=== PATIENT | male | born 1990 | race Caucasian/White ===

== ENCOUNTER 2024-07-16 11:18 | Inpatient (IN) ==
--- NOTE | 2024-07-16 11:40 | Emergency Department Note ---
HPI - Dizziness General Chief Complaint: Dizziness Stated Complaint: DIZZINESS,CHEST PAIN Time Seen by Provider: 07/16/24 11:37 Source: patient Mode of arrival: walk-in Limitations: no limitations History of Present Illness HPI Narrative: 33 Y/O Male with a PMHX of HTN, GERD, comes to the ER with c/o dizziness, double vision, with blurriness, DAVIS for the last 2 weeks, worsening in the last 2 days. He reports he feels as if the room is spinning when he changes positions. Denies N/V, or recent head injury. Non smoker. Denies CP, weakness, near syncope. Patient denies any recent head injuries. Patient does not wear corrective lenses. Patient reports he was DX with HLD, but never took the prescribed medication. He also states he is a daily drinker. Denies any illicit drugs. MD elicited complaint: Reports dizziness and vertigo Onset (ago): week(s) (2) Timing: Reports sudden onset Severity: mild-moderate Description: Reports "room spinning" and off-balance; Denies difficulty walking or near-syncope History of similar symptoms: No Associated symptoms: Denies nausea, vomiting, chest pain, fever or shortness of breath Associated neuro symptoms: Reports diplopia and vision changes; Denies difficulty speaking, difficulty swallowing, facial numbness, facial weakness, limb numbness, limb weakness, gait ataxia, limb ataxia or confusion Related Data Home Medications Medication Instructions Recorded Confirmed atorvastatin 20 mg tablet mg 07/16/24 clonidine HCl 0.1 mg tablet mg 07/16/24 doxycycline monohydrate 100 mg mg 07/16/24 capsule famotidine 40 mg tablet mg 07/16/24 hydrochlorothiazide 12.5 mg tablet mg 07/16/24 hydrochlorothiazide 25 mg tablet mg 07/16/24 lisinopril 10 mg tablet mg 07/16/24 lisinopril 20 mg tablet mg 07/16/24 losartan 50 mg tablet mg 07/16/24 methocarbamol 750 mg tablet mg 07/16/24 Allergies Allergy/AdvReac Type Severity Reaction Status Date / Time Penicillins Allergy Verified 07/16/24 12:07 Review of Systems Status of ROS 10 or more systems reviewed and unremark able except as noted in history and below Constitutional Denies: fever or chills Eyes Reports: change in vision and blurry vision; Denies: blind spots, light sensitivity, eye discomfort, eye discharge or seeing flashes Ears, nose, mouth, and throat Denies: neck pain Cardiovascular Reports: lightheadedness; Denies: chest pain, palpitations, edema or swelling of feet/ankles Respiratory Denies: shortness of breath, cough, wheezing, stridor or pain on inspiration Gastrointestinal Denies: nausea, vomiting, diarrhea, constipation or change in bowel habits Musculoskeletal Denies: back pain or neck pain Neurological Reports: dizziness and vertigo; Denies: headache, confusion, slurred speech, seizure-like activity or involuntary movements Psychiatric Denies: anxiety PFSH PFS Medical History (Updated 07/16/24 @ 12:11 by Rosy Ruiz RN) HTN (hypertension) Surgical History (Updated 07/16/24 @ 12:11 by Rosy Ruiz RN) H/O lumbar discectomy Social History Smoking status: smoker, status unknown Within the past year, how often did you have a drink containing alcohol: 4 or more times a week Within the past year, how many standard drinks containing alcohol did you have on a typical day: 5 or 6 Within the past year, how often did you have six or more drinks on one occasion: daily or almost daily Total score: 8 Score interpretation: A score of 4 or more indicates drinking is likely to affect patient's safety. Problems where you live: no known problems Highest level of school completed/degree received: high school Little interest or pleasure in doing things: not at all Feeling down, depressed, or hopeless: not at all Exam Constitutional: normal general appearance (morbid obese), no limitations and alert Vital Signs - 24 hr 07/16/24 11:30 07/16/24 11:46 07/16/24 12:00 Temperature 98 F Pulse Rate 105 H 104 H Respiratory Rate 18 16 Blood Pressure 161/113 165/115 167/99 Pulse Oximetry 96 97 Oxygen Delivery Me thod Room Air 07/16/24 12:30 07/16/24 13:00 07/16/24 14:00 Temperature Pulse Rate 96 H 96 H 91 H Respiratory Rate 16 16 16 Blood Pressure 154/97 156/98 159/100 Pulse Oximetry 96 97 97 Oxygen Delivery Me thod 07/16/24 14:19 07/16/24 14:21 07/16/24 14:23 Temperature Pulse Rate 88 87 93 H Respiratory Rate Blood Pressure 159/100 158/108 165/107 Pulse Oximetry Oxygen Delivery Me thod 07/16/24 14:26 07/16/24 14:26 07/16/24 15:00 Temperature Pulse Rate 88 Respiratory Rate 16 Blood Pressure 165/107 165/107 152/100 Pulse Oximetry 95 Oxygen Delivery Me thod 07/16/24 15:30 Temperature Pulse Rate 95 H Respiratory Rate 16 Blood Pressure 170/105 Pulse Oximetry 96 Oxygen Delivery Me thod HENMT: normocephalic and head/scalp atraumatic Eyes: PERRL, EOMs intact bilaterally, visual acuity normal and no nystagmus Neck/C-Spine: visual inspection normal and supple Respiratory: breath sounds equal bilaterally, normal respiratory effort and no use of accessory muscles Cardiovascular: normal heart rate noted and regular rhythm noted Gastrointestinal: abdomen normal to inspection, abdomen soft to palpation and normoactive bowel sounds Extremities: normal to inspection, normal to palpation, no tenderness and full ROM Neurology: french folder II-XII intact, no sensory deficits noted, gait normal, speech normal, coordination normal and GCS normal NIH score is negative Psychiatry: oriented x3, cooperative and affect normal Skin: skin color normal Course Course Hospital Course: 1505 I paged Krupa, with a return call, we discussed the patient, agrees with admission. [address] Weaver, who will admitted the patient, and asked that I ordered repeat trop, EKG, and add scheduled labetalol for BP control. Reevaluation(s) Reevaluation #1: Patient's BP continues to be elevated. Patient denies any dizziness at this time, or double vision. We discussed admission to get his BP regulated, patient agreed. Patient's gait is normal. Time: 15:00 Reevaluation #2: ORTHO STAT VITALS 159/100 HR 88, laying 158/108, HR 87, Sitting 165/107 HR 91 Standing Vital Signs Vital signs: Vital Signs Temperature 98 F 07/16/24 11:30 Pulse Rate 105 H 07/16/24 11:30 Respiratory Rate 18 07/16/24 11:30 Blood Pressure 161/113 07/16/24 11:30 Pulse Oximetry 96 07/16/24 11:30 Oxygen Delivery Method Room Air 07/16/24 11:30 Temperature 97.2 F L 07/16/24 16:02 Pulse Rate 86 07/16/24 16:02 Respiratory Rate 18 07/16/24 16:02 Blood Pressure 154/105 07/16/24 16:19 Pulse Oximetry 98 07/16/24 16:02 Oxygen Delivery Method Room Air 07/16/24 16:02 Discharge Plan Discharge Patient Disposition: Admitted As Observation Condition: Stable Clinical Impression: Hypertensive urgency Interventions: ED Discharge Assessment Last Done: 07/16/24 15:55 ED Discharge Vital Sign Last Done: 07/16/24 15:55 Emergency Department Charge Sheet Last Done: 07/16/24 15:55 Time of Disposition: 15:20 Discharge Date/Time: 07/16/24 15:55
[2024-07-16] MEDS: HYDRALAZINE HCL 20 MG/ML VIAL IVP ONE (11:46)
[2024-07-16] MEDS: MECLIZINE HCL 25 MG TABLET PO ONE (12:06)
[2024-07-16 12:11] LABS: Basophils #(Absolute) Auto 0.1 (0.0-0.1); Basophils%(Percent) Auto 0.7 (0.0-1.3); Eosinophils#(Absolute)Auto 0.2 (0.0-0.3); Eosinophils%(Percent) Auto 2.2 % (0.0-4.0); Granulocytes % - Auto 68.5 % (49.1-73.1); Granulocytes#(Absolute)- Auto 5.9 (2.0-6.2); Mean Corpuscular Volume 100.2 fl (81.9-96.5); Monocytes #(Absolute)- Auto 0.7 (0.2-0.8); Monocytes %(Percent)- Auto 8.2 % (4.5-10.7); Platelet Count 284 K/uL (142-355); White Blood Count 8.6 K/uL (3.7-9.6)
[2024-07-16 12:19] LABS: Potassium 3.8 mmol/L (3.6-5.2)
[2024-07-16] MEDS: LABETALOL HCL 20 MG/4 ML CARTRIDGE INJ ONE (14:26)
[2024-07-16] MEDS: lisinopriL 10 MG TABLET PO SCH (16:19)
[2024-07-16] MEDS: PANTOPRAZOLE SODIUM 40 MG TABLET.DR PO SCH (18:24)
[2024-07-16] MEDS: LABETALOL HCL 5 MG/ML INJ PRN (18:24)
[2024-07-16] MEDS: LORazepam 2 MG/ML VIAL IVP PRN (18:25)
[2024-07-16] MEDS: TRAMADOL HCL 50 MG TABLET PO PRN (18:45)
[2024-07-16] MEDS: ENALAPRILAT DIHYDRATE 1.25 MG/ML VIAL IVP PRN (20:34)
[2024-07-16] MEDS: LABETALOL HCL 5 MG/ML INJ SCH (23:16)
[2024-07-17 05:44] LABS: Basophils%(Percent) Auto 0.2 (0.0-1.3); Eosinophils#(Absolute)Auto 0.2 (0.0-0.3); Granulocytes % - Auto 72.2 % (49.1-73.1); Granulocytes#(Absolute)- Auto 5.8 (2.0-6.2); Hematocrit 48.4 % (41.3-50.1); Mean Corpuscular Volume 100.1 fl (81.9-96.5); Monocytes #(Absolute)- Auto 0.7 (0.2-0.8); Monocytes %(Percent)- Auto 8.6 % (4.5-10.7); Platelet Count 234 K/uL (142-355)
[2024-07-17 05:45] LABS: Potassium 3.1 mmol/L (3.6-5.2)
[2024-07-17] MEDS: POTASSIUM CHLORIDE 20 MEQ TAB.ER.PRT PO ONE ×3 (08:34→13:23)
--- NOTE | 2024-07-17 11:56 | History & Physical Report ---
H&P: HPI History of Present Illness Chief complaint: HYPERTENSION Narrative: 33 year old male was admitted to the floor yesterday from the ED due to dizziness, double vision with blurriness, DAVIS for 2 weeks that has worsened over the last two days. Patient was found to have hypertensive urgency. Patient has been on blood pressure medications in the past. He admits to having anxiety and a lot of stress from his job. He reports drinking daily to relax him. Patient reports this morning that he no longer has a headache but continues to have some dizziness when ambulating. Patient was educated that he has an otitis media that could be causing this however other reasons could not be excluded at present. Blood pressure has improved with IV HTN medications. Will start on po meds today to monitor his response. Patient has refused a cholecystecomy in the past due to it being elective. I advised him to see a power originator first and then to have it removed due to elevation of liver enzymes. Also discussed diet changes including fatty foods and alcohol being factors. Review of Systems Status of ROS 10 or more systems reviewed and unremark able except as noted in history and below Constitutional Denies: fever or chills Eyes Denies: change in vision, blurry vision, blind spots, light sensitivity, eye discomfort, eye discharge or seeing flashes Ears, nose, mouth, and throat Reports: vertigo; Denies: neck pain Cardiovascular Reports: lightheadedness; Denies: chest pain, palpitations, edema, swelling of feet/ankles or shortness of breath with exertion Respiratory Denies: shortness of breath, cough, wheezing, stridor or pain on inspiration Gastrointestinal Denies: nausea, vomiting, diarrhea, constipation or change in bowel habits Musculoskeletal Denies: back pain or neck pain Neurological Reports: dizziness and vertigo; Denies: headache, confusion, slurred speech, seizure-like activity or involuntary movements Psychiatric Reports: anxiety Allergic/Immunologic Denies: wheezing PFSH PFS Medical History (Updated 07/17/24 @ 12:14 by Mary Kate Shabazz RN) ETOH abuse HLD (hyperlipidemia) Obesity Anxiety Elevated liver enzymes Cholelithiases GERD (gastroesophageal reflux disease) HTN (hypertension) Surgical History (Updated 07/16/24 @ 12:11 by Rosy Ruiz RN) H/O lumbar discectomy Social History Smoking status: smoker, status unknown Within the past year, how often did you have a drink containing alcohol: 4 or more times a week Within the past year, how many standard drinks containing alcohol did you have on a typical day: 5 or 6 Within the past year, how often did you have six or more drinks on one occasion: daily or almost daily Total score: 8 Score interpretation: A score of 4 or more indicates drinking is likely to affect patient's safety. Problems where you live: no known problems Highest level of school completed/degree received: high school Little interest or pleasure in doing things: not at all Feeling down, depressed, or hopeless: not at all Meds Home Medications and Allergies Home Medications Medication Instructions Recorded Confirmed Type atorvastatin 20 mg tablet mg 07/16/24 History clonidine HCl 0.1 mg tablet mg 07/16/24 History doxycycline monohydrate 100 mg mg 07/16/24 History capsule famotidine 40 mg tablet mg 07/16/24 History hydrochlorothiazide 12.5 mg tablet mg 07/16/24 History hydrochlorothiazide 25 mg tablet mg 07/16/24 History lisinopril 10 mg tablet mg 07/16/24 History lisinopril 20 mg tablet mg 07/16/24 History losartan 50 mg tablet mg 07/16/24 History methocarbamol 750 mg tablet mg 07/16/24 History Allergies Allergy/AdvReac Type Severity Reaction Status Date / Time Penicillins Allergy Verified 07/16/24 12:07 Exam Constitutional: normal general appearance, abnormal body habitus and alert Vital Signs - 24 hr 07/16/24 11:46 07/16/24 12:00 07/16/24 12:30 Temperature Pulse Rate 104 H 96 H Pulse Rate [Left B rachial] Respiratory Rate 16 16 Blood Pressure 165/115 167/99 154/97 Blood Pressure [Le ft Arm] Pulse Oximetry 97 [facility] 13:00 07/16/24 14:00 07/16/24 14:19 Temperature Pulse Rate 96 H 91 H 88 Pulse Rate [Left B rachial] Respiratory Rate 16 16 Blood Pressure 156/98 159/100 159/100 Blood Pressure [Le ft Arm] Pulse Oximetry 97 97 Oxygen Delivery Nv thod 07/16/24 14:21 07/16/24 14:23 07/16/24 14:26 Temperature Pulse Rate 87 93 H Pulse Rate [Left B rachial] Respiratory Rate Blood Pressure 158/108 165/107 165/107 Blood Pressure [Le ft Arm] Pulse Oximetry Oxygen Delivery Me thod 07/16/24 14:26 07/16/24 15:00 07/16/24 15:30 Temperature Pulse Rate 88 95 H Pulse Rate [Left B rachial] Respiratory Rate 16 16 Blood Pressure 165/107 152/100 170/105 Blood Pressure [Le ft Arm] Pulse Oximetry 95 96 Oxygen Delivery Me od 07/16/24 15:55 07/16/24 16:00 07/16/24 16:02 Temperature 98 F 97.2 F L Pulse Rate 93 H 88 Pulse Rate [Left B rachial] 86 Respiratory Rate 18 16 18 Blood Pressure 165/107 167/103 Blood Pressure [Le ft Arm] 154/105 Pulse Oximetry 96 97 [facility] 07/16/24 16:16 07/16/24 16:19 07/16/24 20:00 Temperature 98.2 F Pulse Rate Pulse Rate [Left B rachial] 92 H Respiratory Rate 18 Blood Pressure 154/105 154/105 Blood Pressure [Le ft Arm] 146/92 Pulse Oximetry 96 [facility] 07/16/24 20:33 07/16/24 20:34 07/16/24 23:14 Temperature Pulse Rate 92 H Pulse Rate [Left B rachial] Respiratory Rate Blood Pressure 146/92 146/92 129/86 Blood Pressure [Le ft Arm] Pulse Oximetry [facility] 07/16/[facility] 23:16 07/17/24 00:00 07/17/24 00:59 Temperature 97.8 F Pulse Rate 92 H 82 Pulse Rate [Left B rachial] 82 Respiratory Rate 18 Blood Pressure 126/89 137/87 Blood Pressure [Le ft Arm] 137/87 Pulse Oximetry 97 [facility] 07/17/24 04:00 07/17/24 05:59 07/17/24 07:25 Temperature 98.3 F 97.6 F Pulse Rate 79 Pulse Rate [Left B rachial] 79 85 Respiratory Rate 17 20 Blood Pressure 140/89 Blood Pressure [Le ft Arm] 140/89 145/83 Pulse Oximetry 96 96 Oxygen Delivery [facility] Room Air Room Air 07/17/24 08:06 Temperature Pulse Rate 85 Pulse Rate [Left B rachial] Respiratory Rate Blood Pressure 145/83 Blood Pressure [Le ft Arm] Pulse Oximetry Oxygen Delivery Me thod HENMT: normocephalic, head/scalp atraumatic, hearing grossly normal bilat erally, external ears normal, EACs abnormal, nasal mucous membranes normal, external nose normal and oral mucous membranes normal Eyes: PERRL, EOMs intact bilaterally, conjunctivae normal, no scleral icterus, no papilledema and normal visual baig by confrontation Chest: inspection of chest normal Respiratory: breath sounds equal bilaterally, normal respiratory effort, clear to auscultation bilaterally, no wheezes and no rales Cardiovascular: normal heart rate noted, regular rhythm noted, no gallop, no rub and no murmur Gastrointestinal: abdomen normal to inspection, abdomen soft to palpation, nontender to palpation, nontender to percussion, nondistended and normoactive bowel sounds Genitourinary: no CVA tenderness Extremities: normal to inspection, normal to palpation, no tenderness and full ROM Neurology: no movement abnormality noted, no sensory deficits noted, gait normal, speech normal and coordination normal Psychiatry: mental status grossly normal, oriented x3 and cooperative Skin: skin color normal, no rash, no lesions, no ecchymosis noted and no wounds Assessment and Plan Assessment and Plan (1) HTN (hypertension): Code(s): I10 - Essential (primary) hypertension (2) Cholelithiases: Code(s): K80.20 - Calculus of gallbladder without cholecystitis without obstruction (3) Elevated liver enzymes: Code(s): R74.8 - Abnormal levels of other serum enzymes (4) Fatty liver: Code(s): K76.0 - Fatty (change of) liver, not elsewhere classified (5) Anxiety: Code(s): F41.9 - Anxiety disorder, unspecified (6) Otitis media: Code(s): H66.90 - Otitis media, unspecified, unspecified ear (7) ETOH abuse: Code(s): F10.10 - Alcohol abuse, uncomplicated (8) Hypokalemia: Code(s): E87.6 - Hypokalemia (9) GERD (gastroesophageal reflux disease): Code(s): K21.9 - Gastro-esophageal reflux disease without esophagitis (10) Obesity: Code(s): E66.9 - Obesity, unspecified (11) ROGER (obstructive sleep apnea): Code(s): G47.33 - Obstructive sleep apnea (adult) (pediatric) Plan D/C IV HTN meds Start Lisinopril 20 mg BID Start Metoprolol 25 mg Daily Protonix Start Lexapro 5 mg daily D/C IV Ativan Start Ativan 1 mg po BID PRN Tramadol 50 mg BID PRN Electrolyte Replacement Replace Potassium F/U with cardiology Needs sleep study for ROGER Seek help for anxiety and ETOH abuse Results Labs Labs: CBC WBC 8.0 K/uL (3.7-9.6) 07/17/24 05:25 RBC 4.8 M/uL (4.40-5.80) 07/17/24 05:25 Hgb 16.8 gm/dL (14.0-17.4) 07/17/24 05:25 Hct 48.4 % (41.3-50.1) 07/17/24 05:25 MCV 100.1 fl (81.9-96.5) H 07/17/24 05:25 MCH 34.8 pg (27.6-33.7) H 07/17/24 05:25 MCHC 34.8 g/dl (33.0-35.7) 07/17/24 05:25 RDW 14.7 % (11.0-14.8) 07/17/24 05:25 Plt Count 234 K/uL (142-355) 07/17/24 05:25 MPV 8.3 fl (6.0-10.4) 07/17/24 05:25 Gran % 72.2 % (49.1-73.1) 07/17/24 05:25 Lymph % (Auto) 17.0 % (17.6-39.05) L 07/17/24 05:25 [place] % (Auto) 8.6 % (4.5-10.7) 07/17/24 05:25 Eos % (Auto) 2.0 % (0.0-4.0) 07/17/24 05:25 Baso % (Auto) 0.2 (0.0-1.3) 07/17/24 05:25 Lymph # (Auto) 1.4 (0.8-2.9) 07/17/24 05:25 [place] # (Auto) 0.7 (0.2-0.8) 07/17/24 05:25 Eos # (Auto) 0.2 (0.0-0.3) 07/17/24 05:25 Baso # (Auto) 0.0 (0.0-0.1) 07/17/24 05:25 Absolute Gran (auto) 5.8 (2.0-6.2) 07/17/24 05:25 BMP Sodium 134 mmol/L (136-145) L 07/17/24 05:25 Potassium 3.1 mmol/L (3.6-5.2) L 07/17/24 05:25 Chloride 98.0 mmol/L (98-107) 07/17/24 05:25 Carbon Dioxide 30 mmol/L (21-32) 07/17/24 05:25 Anion Gap 6.0 mEq/L (4-14) 07/17/24 05:25 BUN 9 mg/dL (7-18) 07/17/24 05:25 Creatinine 0.9 mg/dL (0.6-1.3) 07/17/24 05:25 Estimated GFR 115.7 (>59.9) 07/17/24 05:25 Glucose 116 mg/dL (70-110) H 07/17/24 05:25 Calcium 8.5 mg/dL (8.5-10.1) 07/17/24 05:25 Total Bilirubin 1.00 mg/dL (0.0-1.0) 07/16/24 12:00 AST 229 U/L (15-37) H 07/16/24 12:00 ALT 298 U/L (30-65) H 07/16/24 12:00 Alkaline Phosphatase 132 U/L (50-136) 07/16/24 12:00 Total Protein 7.9 g/dL (6.4-8.2) 07/16/24 12:00 Albumin 3.9 g/dL (3.4-5.0) 07/16/24 12:00 Cardiac Enzymes Troponin I High Sens 9.20 ng/L (4.0-60.4) 07/16/24 17:17 Liver Function Total Bilirubin 1.00 mg/dL (0.0-1.0) 07/16/24 12:00 AST 229 U/L (15-37) H 07/16/24 12:00 ALT 298 U/L (30-65) H 07/16/24 12:00 Alkaline Phosphatase 132 U/L (50-136) 07/16/24 12:00 Total Protein 7.9 g/dL (6.4-8.2) 07/16/24 12:00 Albumin 3.9 g/dL (3.4-5.0) 07/16/24 12:00
[2024-07-17] MEDS: ESCITALOPRAM OXALATE 10 MG TABLET PO SCH (13:01)
[2024-07-17] MEDS: AMOXICILLIN/POTASSIUM CLAV 875/125 MG TABLET PO SCH (13:02)
[2024-07-17] MEDS: LORazepam 1 MG TABLET PO PRN (13:02)
[2024-07-17] MEDS: METOPROLOL SUCCINATE 25 MG TAB.ER.24H PO SCH (13:02)
[2024-07-17] MEDS: lisinopriL 10 MG TABLET PO SCH (20:04)
[2024-07-18 05:06] LABS: Basophils%(Percent) Auto 0.3 (0.0-1.3); Eosinophils#(Absolute)Auto 0.2 (0.0-0.3); Eosinophils%(Percent) Auto 2.9 % (0.0-4.0); Granulocytes % - Auto 72.6 % (49.1-73.1); Granulocytes#(Absolute)- Auto 6.2 (2.0-6.2); Hematocrit 46.8 % (41.3-50.1); Mean Corpuscular Volume 101.1 fl (81.9-96.5); Monocytes #(Absolute)- Auto 0.7 (0.2-0.8); Monocytes %(Percent)- Auto 8.1 % (4.5-10.7); Platelet Count 237 K/uL (142-355); White Blood Count 8.5 K/uL (3.7-9.6)
[2024-07-18 05:38] LABS: Potassium 3.4 mmol/L (3.6-5.2)
[2024-07-18 09:46] LABS: PH BODY FLUID EXCP BLOOD 6.5 (5 - 9); Specific Gravity Urine 1.015 (1.001-1.035); Urine Appearance CLEAR (CLEAR); Urine Blood NEGATIVE (NEG - TRACE); Urine Color ORANGE (STRAW/YELL.); Urine Urobilinogen Normal (NORMAL)
[2024-07-18 09:57] LABS: Amphetamine Screen Urine NEG. (NEGATIVE); Cannabinoid Screen Urine NEG. (NEGATIVE); Cocaine Screen Urine NEG. (NEGATIVE); Methadone Screen Urine NEG. (NEGATIVE); Opiate Screen Urine NEG. (NEGATIVE)
[2024-07-18] MEDS: 0.9 % SODIUM CHLORIDE 1000 ML 1,000 ML IV SCH ×2 (13:25→14:37)
--- NOTE | 2024-07-18 16:23 | Progress Note ---
Progress Note: Subjective Subjective Interval history: Patient has an elevated Bilirubin of 1.92 and elevated liver functions, AST 223 & ALT 262. Provider discussed need for a general surgeon due to gallbladder issues going on for a couple years, per patient. Patient struggles with anxiety and states he has coped through drinking. Patient states he does not think he has a problem with drinking as he only drinks when he is home from work, but also reports when he is home, he drinks a pint a day of liquor. Patient has continued to struggle with dizziness since admission, physical therapy evaluated today for inner ear issue and was cleared. Exam Exam: Patient sitting up in chair upon entering room at time of exam. Patient's mother and were in room. Constitutional: normal general appearance, no apparent distress, abnormal body habitus (obese), no limitations and alert Vital Signs - 24 hr 07/17/24 16:00 07/17/24 19:44 07/17/24 20:04 Temperature 98.6 F 98.4 F Pulse Rate [Left B rachial] 87 86 Respiratory Rate 20 18 Blood Pressure 139/93 Blood Pressure [Le ft Arm] 145/96 139/93 Pulse Oximetry 96 [facility] 07/18/24 00:00 07/18/24 04:00 07/18/24 08:00 Temperature 97.7 F 97.8 F 98.3 F Pulse Rate [Left B rachial] 92 H 86 81 Respiratory Rate 20 18 18 Blood Pressure Blood Pressure [Le ft Arm] 132/84 113/76 147/93 Pulse Oximetry 97 96 95 [facility] Room Air Room Air 07/18/24 08:28 07/18/24 12:00 Temperature 98.4 F Pulse Rate [Left B rachial] 76 Respiratory Rate 18 Blood Pressure 147/93 Blood Pressure [Le ft Arm] 138/94 Pulse Oximetry 95 [facility] HENMT: normocephalic, head/scalp atraumatic, hearing grossly normal bilaterally, external ears normal, EACs abnormal, nasal mucous membranes normal, external nose normal and oral mucous membranes normal Eyes: PERRL, EOMs intact bilaterally, conjunctivae normal, no scleral icterus, no papilledema, normal visual baig by confrontation, visual acuity normal and no nystagmus Neck/C-Spine: visual inspection normal and supple Lymph: no lymphadenopathy noted and no lymphedema noted Chest: inspection of chest normal and palpation of chest normal Respiratory: breath sounds equal bilaterally, normal respiratory effort, clear to auscultation bilaterally, no wheezes, no rales and no use of accessory muscles Cardiovascular: normal heart rate noted, regular rhythm noted, no gallop, no rub and no murmur Gastrointestinal: abdomen normal to inspection, abdomen soft to palpation, nontender to palpation, nontender to percussion, nondistended and normoactive bowel sounds Genitourinary: no CVA tenderness Back/Pelvis: spine normal to inspection, no thoracic spine tenderness, no lumbar spine tenderness, thoracic spine ROM normal and lumbar spine ROM normal Extremities: normal to inspection, normal to palpation, no tenderness and full ROM Neurology: drafter landscape II-XII intact, no movement abnormality noted, no sensory deficits noted, gait normal, speech normal, coordination normal and GCS normal NIH score is negative Psychiatry: mental status grossly normal, oriented x3, cooperative and affect normal Skin: skin color normal, no rash, no lesions, no ecchymosis noted and no wounds Progress Note: Objective Labs Labs: CBC WBC 8.5 K/uL (3.7-9.6) 07/18/24 05:00 RBC 4.6 M/uL (4.40-5.80) 07/18/24 05:00 Hgb 16.1 gm/dL (14.0-17.4) 07/18/24 05:00 Hct 46.8 % (41.3-50.1) 07/18/24 05:00 MCV 101.1 fl (81.9-96.5) H 07/18/24 05:00 MCH 34.7 pg (27.6-33.7) H 07/18/24 05:00 MCHC 34.3 g/dl (33.0-35.7) 07/18/24 05:00 RDW 14.6 % (11.0-14.8) 07/18/24 05:00 Plt Count 237 K/uL (142-355) 07/18/24 05:00 MPV 8.9 fl (6.0-10.4) 07/18/24 05:00 Gran % 72.6 % (49.1-73.1) 07/18/24 05:00 Lymph % (Auto) 16.1 % (17.6-39.05) L 07/18/24 05:00 [place] % (Auto) 8.1 % (4.5-10.7) 07/18/24 05:00 Eos % (Auto) 2.9 % (0.0-4.0) 07/18/24 05:00 Baso % (Auto) 0.3 (0.0-1.3) 07/18/24 05:00 Lymph # (Auto) 1.4 (0.8-2.9) 07/18/24 05:00 [place] # (Auto) 0.7 (0.2-0.8) 07/18/24 05:00 Eos # (Auto) 0.2 (0.0-0.3) 07/18/24 05:00 Baso # (Auto) 0.0 (0.0-0.1) 07/18/24 05:00 Absolute Gran (auto) 6.2 (2.0-6.2) 07/18/24 05:00 BMP Sodium 133 mmol/L (136-145) L 07/18/24 05:00 Potassium 3.4 mmol/L (3.6-5.2) L 07/18/24 05:00 Chloride 100.0 mmol/L (98-107) 07/18/24 05:00 Carbon Dioxide 27 mmol/L (21-32) 07/18/24 05:00 Anion Gap 6.0 mEq/L (4-14) 07/18/24 05:00 BUN 7 mg/dL (7-18) 07/18/24 05:00 Creatinine 0.8 mg/dL (0.6-1.3) 07/18/24 05:00 Estimated GFR 119.8 (>59.9) 07/18/24 05:00 Glucose 101 mg/dL (70-110) 07/18/24 05:00 Calcium 8.5 mg/dL (8.5-10.1) 07/18/24 05:00 Total Bilirubin 1.92 mg/dL (0.0-1.0) H 07/18/24 05:00 AST 223 U/L (15-37) H 07/18/24 05:00 ALT 262 U/L (30-65) H 07/18/24 05:00 Alkaline Phosphatase 100 U/L (50-136) 07/18/24 05:00 Total Protein 6.9 g/dL (6.4-8.2) 07/18/24 05:00 Albumin 3.4 g/dL (3.4-5.0) 07/18/24 05:00 Cardiac Enzymes Troponin I High Sens 9.20 ng/L (4.0-60.4) 07/16/24 17:17 Liver Function Total Bilirubin 1.92 mg/dL (0.0-1.0) H 07/18/24 05:00 AST 223 U/L (15-37) H 07/18/24 05:00 ALT 262 U/L (30-65) H 07/18/24 05:00 Alkaline Phosphatase 100 U/L (50-136) 07/18/24 05:00 Total Protein 6.9 g/dL (6.4-8.2) 07/18/24 05:00 Albumin 3.4 g/dL (3.4-5.0) 07/18/24 05:00 Urine Urine Color [place] (STRAW/YELL.) 07/18/24 09:40 Urine Appearance Clear (CLEAR) 07/18/24 09:40 Ur Specific [place] 1.015 (1.001-1.035) 07/18/24 09:40 Urine Protein Negative (NEGATIVE) 07/18/24 09:40 Urine Glucose (UA) Normal (NORMAL) 07/18/24 09:40 Urine Ketones Small (NEGATIVE) 07/18/24 09:40 Urine Occult Blood Negative (NEG - TRACE) 07/18/24 09:40 Urine Nitrite Negative (NEGATIVE) 07/18/24 09:40 Urine Bilirubin 1+ (NEGATIVE) 07/18/24 09:40 Urine Urobilinogen Normal (NORMAL) 07/18/24 09:40 Ur Leukocyte Esterase Negative (NEGATIVE) 07/18/24 09:40 Progress Note: A&P Assessment and Plan (1) HTN (hypertension): Qualifiers: Hypertension type: primary hypertension Qualified Code(s): I10 - Essential (primary) hypertension (2) Cholelithiases: Qualifiers: Cholelithiasis location: gallbladder Cholecystitis presence: without cholecystitis Biliary obstruction: without biliary obstruction Qualified Code(s): K80.20 - Calculus of gallbladder without cholecystitis without obstruction (3) Elevated liver enzymes: (4) Fatty liver: (5) Anxiety: (6) Otitis media: Qualifiers: Otitis media type: unspecified Chronicity: acute Qualified Code(s): H66.90 - Otitis media, unspecified, unspecified ear (7) ETOH abuse: (8) Hypokalemia: (9) GERD (gastroesophageal reflux disease): Qualifiers: Esophagitis presence: without esophagitis Qualified Code(s): K21.9 - Gastro-esophageal reflux disease without esophagitis (10) Obesity: Qualifiers: Obesity type: unspecified obesity type Obesity classification: adult class 3 (BMI >= 40) Serious obesity comorbidity presence: unspecified whether serious comorbidity present Body mass index: BMI 40.0-44.9 Qualified Code(s): E66.813 - Obesity, class 3; E66.01 - Morbid (severe) obesity due to excess calories; Z68.41 - Body mass index [BMI] 40.0-44.9, adult (11) ROGER (obstructive sleep apnea): Plan D/C IV HTN meds Start Lisinopril 20 mg BID Start Metoprolol 25 mg Daily Protonix Start Lexapro 5 mg daily D/C IV Ativan Start Ativan 1 mg po BID PRN Tramadol 50 mg BID PRN Electrolyte Replacement Replace Potassium F/U with cardiology Needs sleep study for ROGER Seek help for anxiety and ETOH abuse Fall Risk Details [place] Fall Scale Risk Level: Moderate Fall Risk Current Medications: Current Medications Amlodipine Besylate (Amlodipine Besylate 5 Mg Tablet) 5 mg PO 2100 [facility] Amoxicillin/Clavulanate Potassium (Amoxicillin/Potassium Clav 875/125 Mg Tablet) 1 each PO BID [facility] Last Admin: 07/18/24 08:27 Dose: 1 each Escitalopram Oxalate (Escitalopram Oxalate 10 Mg Tablet) 5 mg PO DAILY [facility] Last Admin: 07/18/24 08:27 Dose: 5 mg Sodium Chloride (Sodium Chloride) 1,000 mls @ 999 mls/hr IV ONCE [facility] Last Infusion: 07/18/24 14:30 Dose: Infused Sodium Chloride (Sodium Chloride) 1,000 mls @ 125 mls/hr IV CONT [facility] Last Admin: 07/18/24 14:37 Dose: 125 mls/hr Lisinopril (Lisinopril 10 Mg Tablet) 20 mg PO BID [facility] Last Admin: 07/18/24 08:28 Dose: 20 mg Lorazepam (Lorazepam 1 Mg Tablet) 1 mg PO BID PRN; Protocol PRN Reason: Agitation/anxiety Last Admin: 07/17/24 20:04 Dose: 1 mg Metoprolol Succinate (Metoprolol Succinate 25 Mg Tab.Er.24h) 25 mg PO DAILY [facility] Last Admin: 07/18/24 08:28 Dose: 25 mg Pantoprazole Sodium (Pantoprazole Sodium 40 Mg Tablet.Dr) 40 mg PO BID [facility] Last Admin: 07/18/24 08:28 Dose: 40 mg Tramadol HCl (Tramadol Hcl 50 Mg Tablet) 50 mg PO BID PRN PRN Reason: Pain Last Admin: 07/16/24 18:45 Dose: 50 mg Time Spent With Patient Time: Total time spent is greater than 50% in coordination of care (as documented) at patient's floor/unit and/or counseling patient:
[2024-07-18] MEDS: MECLIZINE HCL 25 MG TABLET PO PRN (18:37)
[2024-07-18] MEDS: AMLODIPINE BESYLATE 5 MG TABLET PO SCH (21:35)
[2024-07-19 03:37] VITALS: RESP 18
[2024-07-19 06:12] LABS: Basophils%(Percent) Auto 0.3 (0.0-1.3); Eosinophils#(Absolute)Auto 0.3 (0.0-0.3); Granulocytes % - Auto 73.7 % (49.1-73.1); Granulocytes#(Absolute)- Auto 6.4 (2.0-6.2); Hematocrit 46.1 % (41.3-50.1); Mean Corpuscular Volume 102.1 fl (81.9-96.5); Monocytes #(Absolute)- Auto 0.7 (0.2-0.8); Monocytes %(Percent)- Auto 7.9 % (4.5-10.7); Platelet Count 218 K/uL (142-355); White Blood Count 8.7 K/uL (3.7-9.6)
[2024-07-19 06:34] LABS: Potassium 4.1 mmol/L (3.6-5.2)
[2024-07-19 08:02] VITALS: BP 135/81; PULSE 75; TEMP 98.3
--- NOTE | 2024-07-19 09:40 | Discharge Summary ---
DS: Providers Provider Date of admission: 07/16/24 15:40 Primary care physician: TRAM ARROYO MD Admitting clinician: Kimberlyn Aguayo Attending physician on admission: TRAM ARROYO Consults: 07/18/24 11:05 Consult to Physical Therapy Routine Comment: Consulting Provider: Reason for consultation: dizziness Physician Instructions: evaluate and treat Attending physician on discharge: Radha Altamirano Discharging clinician: Radha Altamirano Anticipated date of discharge: 07/19/24 DS: Diagnosis Discharge Diagnosis (1) Cholelithiasis with acute cholangitis with biliary obstruction: (2) Elevated liver enzymes: Assessment and plan: secondary to number 1 obstruction and 3 obesity and 6 ETOH abuse (3) Fatty liver: (4) Otitis media: Qualifiers: Chronicity: acute Otitis media type: unspecified Qualified Code(s): H66.90 - Otitis media, unspecified, unspecified ear (5) Anxiety: (6) ETOH abuse: (7) Hypokalemia: (8) GERD (gastroesophageal reflux disease): Qualifiers: Esophagitis presence: without esophagitis Qualified Code(s): K21.9 - Gastro-esophageal reflux disease without esophagitis (9) Obesity: Qualifiers: Body mass index: BMI 40.0-44.9 Obesity classification: adult class 3 (BMI >= 40) Obesity type: unspecified obesity type Serious obesity comorbidity presence: unspecified whether serious comorbidity present Qualified Code(s): E66.813 - Obesity, class 3; E66.01 - Morbid (severe) obesity due to excess calories; Z68.41 - Body mass index [BMI] 40.0-44.9, adult (10) ROGER (obstructive sleep apnea): DS: Summary Hospital Course Hospital Course: 1505 I paged Krupa, with a return call, we discussed the patient, agrees with admission. [address] Arroyo, who will admitted the patient, and asked that I ordered repeat trop, EKG, and add scheduled labetalol for BP control. patient pain and dizziness improved with medication and hydration stable and patient released to go to [place] for surgeon and his PCP to arrange [facility] Status at Discharge Overall status at discharge: patient is progressing back to baseline Time Spent with Patient Time attestation: Total time spent providing and/or coordinating discharge services: Time spent: greater than 30 minutes Exam Exam: Patient sitting up in chair upon entering room at time of exam. Patient's mother and were in room. Constitutional: normal general appearance, no apparent distress, abnormal body habitus (obese), no limitations and alert Vital Signs - 24 hr 07/18/24 12:00 07/18/24 16:00 07/18/24 20:00 Temperature 98.4 F 98.6 F 98.4 F Pulse Rate [Left B rachial] 76 80 81 Respiratory Rate 18 18 17 Blood Pressure Blood Pressure [Le ft Arm] 138/94 156/97 152/99 Pulse Oximetry 95 98 96 Oxygen Delivery Me thod Room Air Room Air Room Air 07/18/24 21:35 07/18/24 23:39 07/19/24 03:37 Temperature 98.4 F 98.6 F Pulse Rate [Left B rachial] 73 74 Respiratory Rate 19 18 Blood Pressure 152/99 Blood Pressure [Le ft Arm] 142/86 128/81 Pulse Oximetry 96 98 Oxygen Delivery Pr thod Room Air Room Air 07/19/24 08:00 07/19/24 09:12 Temperature 98.3 F Pulse Rate [Left B rachial] 75 Respiratory Rate 18 Blood Pressure 135/81 Blood Pressure [Le ft Arm] 135/81 Pulse Oximetry 95 Oxygen Delivery Me thod Room Air HENMT: normocephalic, head/scalp atraumatic, hearing grossly normal bilaterally, external ears normal, EACs abnormal, nasal mucous membranes normal, external nose normal and oral mucous membranes normal Eyes: PERRL, EOMs intact bilaterally, conjunctivae normal, no scleral icterus, no papilledema, normal visual baig by confrontation, visual acuity normal and no nystagmus Neck/C-Spine: visual inspection normal and supple Lymph: no lymphadenopathy noted and no lymphedema noted Chest: inspection of chest normal and palpation of chest normal Respiratory: breath sounds equal bilaterally, normal respiratory effort, clear to auscultation bilaterally, no wheezes, no rales and no use of accessory muscles Cardiovascular: normal heart rate noted, regular rhythm noted, no gallop, no rub and no murmur Gastrointestinal: abdomen normal to inspection, abdomen soft to palpation, nontender to palpation, nontender to percussion, nondistended and normoactive bowel sounds Genitourinary: no CVA tenderness Back/Pelvis: spine normal to inspection, no thoracic spine tenderness, no lumbar spine tenderness, thoracic spine ROM normal and lumbar spine ROM normal Extremities: normal to inspection, normal to palpation, no tenderness and full ROM Neurology: plc engineer II-XII intact, no movement abnormality noted, no sensory deficits noted, gait normal, speech normal, coordination normal and GCS normal NIH score is negative Psychiatry: mental status grossly normal, oriented x3, cooperative and affect normal Skin: skin color normal, no rash, no lesions, no ecchymosis noted and no wounds DS: Data Data Completed and Pending Labs on day of discharge: Labs from last 24 hours 07/19/24 07/18/24 05:30 09:40 WBC 8.7 RBC 4.5 Hgb 15.9 Hct 46.1 MCV 102.1 H MCH 35.2 H MCHC 34.5 RDW 14.4 Plt Count 218 MPV 8.6 Gran % 73.7 H Lymph % (Auto) 15.1 L Stewart % (Auto) 7.9 Eos % (Auto) 3.0 Baso % (Auto) 0.3 Lymph # (Auto) 1.3 Stewart # (Auto) 0.7 Eos # (Auto) 0.3 Baso # (Auto) 0.0 Absolute Gran (auto) 6.4 H Sodium 135 L Potassium 4.1 Chloride 102.0 Carbon Dioxide 23 Anion Gap 10.0 BUN 6 L Creatinine 0.7 Estimated GFR 124.8 Glucose 89 Calcium 8.4 L Phosphorus 2.9 Magnesium 2.0 Total Bilirubin 1.80 H AST 282 H ALT 315 H Alkaline Phosphatase 94 Total Protein 6.8 Albumin 3.2 L TSH 3.06 Urine Color [place] Urine Appearance Clear Ur Specific [place] 1.015 Urine Protein Negative Urine Glucose (UA) Normal Urine Ketones Small Urine Occult Blood Negative Urine Nitrite Negative Urine Bilirubin 1+ Urine Urobilinogen Normal Ur Leukocyte Esterase Negative Fluid pH 6.5 Urine Opiates Screen Neg. Urine Methadone Screen Neg. Barbiturate Screen Neg. Ur Phencyclidine Scrn Neg. Amphetamines Screen Neg. U Benzodiazepines Scrn Neg. Urine Cocaine Screen Neg. U Marijuana (THC) Screen Neg. Discharge Plan Discharge Disposition: Home, Self-Care Condition: Improved Discharge Medications: New amlodipine 5 mg Tablet 5 mg PO 2100 Qty: 30 0RF escitalopram oxalate 10 mg Tablet 5 mg PO DAILY Qty: 30 0RF lisinopril 10 mg Tablet 20 mg PO BID Qty: 60 0RF metoprolol succinate 25 mg Tablet Extended Release 24 Hr 25 mg PO DAILY Qty: 30 0RF famotidine 40 mg tablet 40 mg PO BID Qty: 60 0RF Continued losartan 50 mg tablet 50 mg PO DAILY Patient Comments: TAKE 1 TABLET BY MOUTH EVERY DAY FOR 30 DAYS methocarbamol 750 mg tablet 750 mg PO Q8H PRN (Reason: pain) Patient Comments: TAKE 1 TABLET BY MOUTH EVERY 8 HOURS famotidine 40 mg tablet 40 mg PO BEDTIME Patient Comments: TAKE 1 TABLET BY MOUTH EVERY DAY AT BEDTIME FOR 90 DAYS omeprazole 40 mg capsule,delayed release(DR/EC) 40 mg PO QDAC Patient Comments: 1 CAPSULE 1/2 HOUR TO 1 HOUR BEFORE MORNING MEAL ORALLY ONCE A DAY 90 DAYS Discharge Orders: Discharge Order (Routine); Ordered 07/19/24 Ordered By: TRAM ARROYO Activity: resume usual activities as tolerated Diet: regular diet Interventions: Discharge Assessment Last Done: 07/19/24 09:21 MED/SURG & ICU Observation Charge Sheet Last Done: 07/19/24 06:00 Patient Instructions: Gallstones (GEN), Hypertension (GEN), Anxiety (GEN) Activity Restrictions/Additional Instructions: follow up surgeon in [place] today at 10:30 am keep Gallbladder diet see Dr Arroyo Jul 25 for further medication and help with current issues patient states he has stopped drinking and will not touch anymore and will see Dr Arroyo if he needs any help or medications declines inpatient or outpatient rehab at this time increase water intake Forms: Portal/Health Info Access Inst Follow-Ups: Dr. Smith [Other] - 07/21/24 10:30 am (Surgery) Marco Antonio Art NP [Nurse Practitioner] - Discharge Date/Time: 07/19/24 09:39
== END 2024-07-19 09:39 | disposition home or self-care (01) | DRG 445 ==
LOC: ED 11:18 → MS 11:18 → OBSVTOIN 15:40 → MS 15:55
PROVIDERS: ADMIT Family Medicine; ATTEND Family Medicine
DX: G47.33 Obstructive sleep apnea (adult) (pediatric); F41.9 Anxiety disorder, unspecified; Z68.41 Body mass index [BMI] 40.0-44.9, adult; F10.10 Alcohol abuse, uncomplicated; R74.8 Abnormal levels of other serum enzymes; H53.8 Other visual disturbances; R42 Dizziness and giddiness; I10 Essential (primary) hypertension; K21.9 Gastro-esophageal reflux disease without esophagitis; E66.01 Morbid (severe) obesity due to excess calories; H66.90 Otitis media, unspecified, unspecified ear; K80.20 Calculus of gallbladder without cholecystitis without obstruction; K76.0 Fatty (change of) liver, not elsewhere classified; R51.9 Headache, unspecified; I16.0 Hypertensive urgency; K83.09 Other cholangitis; E87.6 Hypokalemia; E66.813 Obesity, class 3